=== PATIENT | male | born 1935 | race Caucasian/White ===

== ENCOUNTER → 2017-04-26 | Outpatient (CLI) | payer OTHER | END | disposition home or self-care (01) | LOC: C.RDSM 11:08 | PROVIDERS: ATTEND Physical Medicine & Rehabilitation Sports Medicine | DX: M25.561 Pain in right knee (principal) ==

== ENCOUNTER 2019-12-18 09:00 | Inpatient (IN) ==
--- NOTE | 2019-11-22 09:49 | PAT Medication Instructions ---
Medication Instructions Date of Service November 22, 2019 Home Medications aspirin 81 mg PO Q OTHER DAY losartan 50 mg PO QAM simvastatin 20 mg PO HS terazosin 5 mg PO HS Continue as directed aspirin 81 mg PO Q OTHER DAY DO NOT take the morning of surgery losartan 50 mg PO QAM Take evening before surgery simvastatin 20 mg PO HS terazosin 5 mg PO HS Other Notes If you have any questions please call us at [phone] or [phone] or [phone] or [phone]
--- NOTE | 2019-11-26 10:42 | Anesthesiology Consultation ---
Date of Service November 26, 2019 Assessment & Plan (1) Encounter for pre-operative examination: - Per assessment on 11/25: Travel screen negative. No known COVID-19 positive contacts or current COVID-19 related symptoms. Surgeon arranging preop COVID testing. Awaiting results. - Cardiology office visit: 06/28/19: Rare palpitations. "Patient reports blood pressure readings "improving." Reports did increase losartan to 50 mg daily. Advised to continue to monitor blood pressure readings. One episode of elevated heart rate but overall no changes; will continue current medical therapy." Chart Review Chart Review: Acceptable Risk for Surgery (pending surgeon-ordered PCP clearance) and Patient seen in Pre Admission Testing Teaching & Discussion Pre-Anesthesia Teaching/Discussion Notes: Instructed NPO after midnight before surgery,except medications with 15 cc of water. Medication instructions provided according to the PAT guidelines. History Surgery Operation Date: 12/18/19 10:10 Proposed Procedures p Right Total Knee Arthroplasty - Noman Iglesias MD Height/Weight Height: 5 ft 9 in Weight: 89.1 kg Allergies Allergy/AdvReac Type Severity Reaction Status Date / Time lisinopril AdvReac Mild Cough Verified 11/21/19 11:57 Medications Home Medications Medication Instructions Recorded Confirmed Last Taken aspirin 81 mg PO Q OTHER DAY 11/21/19 11/21/19 Unknown losartan 50 mg PO QAM 11/21/19 11/21/19 Unknown simvastatin 20 mg PO HS 11/21/19 11/21/19 Unknown terazosin 5 mg PO HS 11/21/19 11/21/19 Unknown Past Medical History Medical History (Updated 11/26/19 @ 15:13 by Jody Chambers) Arthritis BPH (benign prostatic hyperplasia) CAD (coronary artery disease) 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 Hyperlipidemia Hypertension Mitral valve prolapse mitral valve prolapse with moderate MR per 11/2018 echo Exercise / Class Metabolic Activity II 4-5 Yardwork/Stairs/Walk up hill Past Family History Family History Sister Family hx of colon cancer Past Surgical History Surgical History (Updated 11/26/19 @ 15:09 by Jody Chambers) History of cardiac cath 2015 History of cataract surgery Right History of colonoscopy History of open reduction and internal fixation (ORIF) procedure Right arm Past Anesthesia History No Hx of Anesthesia Complications and No Family Hx of Anesthesia Complications History of PONV No Hx of PONV and No Hx of Motion Sickness Social History Smoking Status: Former smoker Do You Dip or Chew Tobacco: No Smoking End Date: Quit 55 years ago Hx Alcohol Use: No Hx Substance Use: No substance use type: does not use Review of Systems Patient denies chest pain, shortness of breath, dyspnea on exertion, fever, chills, cough, wheezing, palpitations. Physical Exam Vital Signs VITALS BP 149/72 P 62 TEMP 98.0 SP02 95%RA RESP 16 PHYSICAL Full neck and c-spine range of motion. Full TMJ range of motion. TMD 3 finger breaths Mallampati Score 2 Dentition: full dentures upper/lower Lungs: clear throughout to auscultation Cardiac: regular rate and rhythm, II/ systolic murmur Spine: normal Carotid arteries: negative bruit Extremities: no edema Testing Laboratory Results 11/26/19 10:58 11/26/19 10:58 PT 11.1 Seconds (9.0-12.0) 11/26/19 10:58 INR 1.1 (0.9-1.1) 11/26/19 10:58 APTT 28.1 Seconds (21.0-31.0) 11/26/19 10:58 Blood Type A Positive 11/26/19 10:58 Antibody Screen NEGATIVE 11/26/19 10:58 Electrocardiogram Date: 11/26/19 SB at 58bpm. Peaked T waves. Otherwise normal ECG. *Potassium done at same visit was WNL, no cardiopulmonary complaints. Will forward report to PCP (she will be seeing PCP for preop evaluation prior to surgery* Chest X-Ray Date: 11/26/19 FINDINGS: Cardiomediastinal and hilar silhouettes are within normal limits. Subsegmental left lung base opacities. Mild pleural thickening of the apices. No pneumothorax, large pleural effusion or overt pulmonary edema. Degenerative changes of the shoulders and spine. Partially imaged ORIF hardware of the proximal right humerus. Age-indeterminate lower thoracic compression deformi ties. IMPRESSION: No acute process. Minimal linear left lung base opacities suggest atelectasis. Echocardiogram Date: 11/21/18 EF 60%. No regional wall motion abnormality. Mild mitral valve prolapse. Moderate MR. Mild TR. Estimated PASP 39 to 44 mmHg. Mild pulmonary hypertension. Grade 1 diastolic dysfunction. borderline LVH. Stress Test Date: 07/05/14 Type: nuclear Based on EKG criteria this test is negative exercise test for ischemia. Based on nuclear imaging findings there is inferior lateral ischemia. LVEF 53%. Subsequent cardiac cath done July 22, 2014 with nonobstructive CAD. Cardiac Catheterization Date: 07/22/14 Left main is a large artery. It is angiographically normal. LAD has 20% proximal stenosis. Further down around the takeoff of the second diagonal there is a section of 20 to 30% stenosis. The OM1 has 30 to 40% stenosis. The rest of this vessel has minimal luminal irregularities. Mild nonobstructive CAD. Medical therapy recommended.
[2019-11-26 11:21] LABS: Basophils # (auto) 0.03 K/uL (0-0.2); Basophils % (auto) 0.5 %; Eosinophils # (auto) 0.15 K/uL (0-0.5); Eosinophils % (auto) 2.6 %; Hematocrit (blood only) 39.9 % (42-52); Immature Granulocytes # (auto) 0.01 K/uL (0.00-0.02); Immature Granulocytes % (auto) 0.2 %; Lymphocytes # (auto) 0.96 K/uL (1.2-3.4); Lymphocytes % (auto) 16.5 %; Mean Corpuscular Hemoglobin 30.3 pg (25-34); Mean Corpuscular Hgb Conc 32.6 g/dL (32-36); Monocytes # (auto) 0.47 K/uL (0.11-0.59); Monocytes % (auto) 8.1 %; Neutrophils # (auto) 4.19 K/uL (1.4-6.5); Neutrophils % (auto) 72.1 %; Platelet Count 234 K/uL (130-400); RDW Coefficient of Variation 14.2 % (11.5-14.5); RDW Standard Deviation 47.9 fL (36.4-46.3); Red Blood Count 4.29 M/uL (4.7-6.1); White Blood Count 5.81 K/uL (4.8-10.8)
--- NOTE | 2019-11-26 11:30 | XRay Report ---
XR chest Pre-admission PA/Lat HISTORY: 83 years-old Male pat preoperative exam. No acute chest complaints COMPARISON: None TECHNIQUE: PA and lateral views of the chest FINDINGS: Cardiomediastinal and hilar silhouettes are within normal limits. Subsegmental left lung base opaciti es. Mild pleural thickening of the apices. No pneumothorax, large pleural effusion or overt pulmonary edema. Degenerative changes of the shoulders and spine. Partially imaged ORIF hardware of the proxim al right humerus. Age-indeterminate lower thoracic compression deformities. IMPRESSION: 1. No acute process. 2. Minimal linear left lung base opacities suggest atelectasis. ACT 112: Negative or not required by law. The above report was generated using voice recognition software. It may contain grammatical, syntax o r spelling errors. Electronically signed by: Surjit Almendarez M.D. 11/26/2019 11:29 AM
[2019-11-26 11:31] LABS: INR 1.1 (0.9-1.1); Partial Thromboplastin Time 28.1 Seconds (21.0-31.0); Prothrombin Time 11.1 Seconds (9.0-12.0)
[2019-11-26 12:19] LABS: BUN Creatinine Ratio 17.3 (10-20); Calcium 9.3 mg/dl (8.5-10.1); Creatinine Clr Calc Pharmacy 48.1 ml/min; Est GFR (African American) 57.7; Est GFR (Non-African American) 49.8
--- NOTE | 2019-11-26 13:02 | Electrocardiogram Report ---
Test Reason : Blood Pressure : / mmHG Vent. Rate : 058 BPM Atrial Rate : 058 BPM P-R Int : 168 ms QRS Dur : 086 ms QT Int : 428 ms P-R-T Axes : 058 045 046 degrees QTc Int : 420 ms Sinus bradycardia Peaked T waves(consider ischemia,hyperkalemia,etc.) Otherwise normal ECG No previous ECGs available Confirmed by Johnny Calixto ([id number]) on 11/26/2019 1:01:38 PM Referred By: Noman Iglesias Confirmed By:Johnny Calixto
[~2019-12-18 09:00] MED LIST: ACETAMINOPHEN 500 MG TAB PO SCH; BUPIVACAINE 0.25% 30 ML VIAL ONE; BUPIVACAINE 0.5 % 5 MG/1 ML PF 10ML VIAL ONE; CeleBREX 200 MG CAP PO SCH; DEXAMETHASONE SOD INJ 4 MG/ML VIAL ONE; EPINEPHrine INJ 1 MG/ML AMP ONE; FAMOTIDINE 20 MG TAB PO SCH; GABAPENTIN 300 MG CAP PO SCH; LR 500ML BOLUS, THEN 15ML/HR IV SCH; LR 60ML/HR IV SCH; ROPIVACAINE 0.5% HCL/PF 150 MG, BUPIVACAINE 0.5% MPF 30 ML, EPINEPHrine 0.15 MG, Ketoro... INFIL SCH; TRANEXAMIC ACID 1,000 MG **IV Intra-op IV SCH; TRANEXAMIC ACID 1,000 MG **IV Pre-op IV SCH; ceFAZolin 2000MG 2,000 MG/15 ML SYR IV SCH; cloNIDine HCL 0.1 MG/24 HR TRANSDERM SYS TD SCH; dexAMETHasone 4 MG TAB PO SCH; oxyCODONE HCL 10 MG TABCR (OxyCONTIN) PO SCH; traMADol HCL 50 MG TABLET PO SCH
[2019-12-18] MEDS ORDERED: PROPOFOL IV EMULSION 10 MG/ML 20 ML VIAL IV ONE ×3 (09:59→14:20)
[2019-12-18] MEDS ORDERED: fentaNYL citrate 100 MCG/2 ML VIAL ONE (09:59)
[2019-12-18] MEDS ORDERED: LIDOCAINE HCL 2% 2 ML VIAL/AMP(20MG/ML) INFIL ONE (09:59)
[2019-12-18] MEDS ORDERED: MIDAZOLAM HCL 1 MG/ML 2ML VIAL ONE (09:59)
--- NOTE | 2019-12-18 10:47 | History & Physical Bridge Note ---
Date of Service December 18, 2019 History & Physical Bridge Note I have examined the patient, reviewed the History & Physical and in the interval since the performance of the History & Physical I have noted the following changes of clinical significance: no changes noted
[2019-12-18] MEDS ORDERED: ePHEDrine sulfate 50 MG/ML AMP IV PRN (10:48)
[2019-12-18] MEDS ORDERED: ONDANSETRON INJ 2 MG/ML 2 ML VIAL IV PRN ×2 (10:48→17:11)
[2019-12-18] MEDS ORDERED: fentaNYL citrate 100 MCG/2 ML VIAL IV PRN (10:48)
[2019-12-18] MEDS ORDERED: ATROPINE SULFATE 0.1 MG/ML 10ML SYR IV PRN (10:48)
[2019-12-18] MEDS ORDERED: ORTHO JOINT ANESTHETIC ONE (11:03)
[2019-12-18] MEDS ORDERED: BACITRACIN INJ 50,000 UNIT VIAL ONE (11:03)
[2019-12-18] MEDS ORDERED: ePHEDrine sulfate 50 MG/ML SYR ONE (11:41)
--- NOTE | 2019-12-18 14:54 | Operative Report ---
Post Operative Report Pre & Post Diagnosis Operation Date: 12/18/19 11:20 Pre-Op Diagnosis: Right Knee Degenerative Joint Disease Post-Op Diagnosis: Right Knee Degenerative Joint Disease I identified the patient and participated in the time-out.: Yes Procedure Operation Date: 12/18/19 11:20 Actual Procedures p Right Total Knee Arthroplasty(Right) - Noman Iglesias MD Surgeon Noman Iglesias M.D. Machine Packer Jessica Estes, fellow; Millicent Moreira PA-C Estimated Blood Loss 10 Findings Consistent with Post-Op Diagnosis Specimens None Anesthesia Type Spinal MAC Complications none Description of Procedure Patient was taken to the operating room, placed under spinal anesthesia, given IV sedation and peripheral nerve block. He was given 2 gm IV Ancef for surgical prophylaxis. Time out performed, prepped and draped in routine sterile fashion. I was present during the entire case, please see Dr. Iglesias's operative report for further detail. Patient was awakened and transferred to the recovery room in stable condition. I attest to the content of the Intraoperative Record and any orders documented therein. Any exceptions are noted below.
--- NOTE | 2019-12-18 15:04 | Anesthesiology Progress Note ---
Date of Service December 18, 2019 Anesthesia Post Procedure Vital Signs Vital Signs: Temp Pulse Pulse Resp BP BP Pulse Ox 12/18/19 14:55 69 16 120/56 L 95 12/18/19 14:47 36.3 C L 79 16 140/60 95 12/18/19 10:22 36.7 C 61 18 135/71 95 12/18/19 09:57 36.5 C 85 18 153/81 H 96 Transfer of Care Handoff Completed per policy Notes Mental Status: alert / awake / arousable Patient Amnestic to Procedure: Yes Nausea / Vomiting: adequately controlled Pain: adequately controlled Airway Patency, RR, SpO2: stable & adequate BP & HR: stable & adequate Hydration State: stable & adequate Neuraxial Anesthesia: was administered and sensory block is resolving Anesthetic Complications: no major complications apparent and Pt Satisfied with anesthetic care
--- NOTE | 2019-12-18 15:11 | XRay Report ---
XR knee RT 1 or 2V routine CLINICAL HISTORY: Surgical Post Op COMPARISON: 11/19/2019 DISCUSSION: There are postsurgical changes of a total right knee arthroplasty and patellar resurfacin g. The femoral and tibial components appear well seated. There are overlying skin elias. There is g as present within the soft tissues consistent with recent surgery. IMPRESSION: Postsurgical changes of a total right knee arthroplasty. ACT 112: Negative or not required by law. Electronically signed by: Greg Carrera M.D. 12/18/2019 3:09 PM
[2019-12-18] MEDS ORDERED: HYDROmorphone INJ 0.5 MG/0.5 ML SYR IV PRN (17:11)
[2019-12-18] MEDS ORDERED: TAMSULOSIN HCL 0.4 MG CAP PO PRN (17:11)
[2019-12-18] MEDS ORDERED: NALOXONE HCL 0.4 MG/1 ML VIAL/CARP IV PRN (17:11)
[2019-12-18] MEDS ORDERED: hydrALAZINE HCL 20 MG/ML VIAL IV PRN (17:11)
[2019-12-18] MEDS ORDERED: traMADol HCL 50 MG TABLET PO PRN (17:11)
[2019-12-18] MEDS ORDERED: bisacodyL 10 MG SUPP PR PRN (17:11)
[2019-12-18] MEDS ORDERED: oxyCODONE HCL IR 5 MG TAB (IMMEDIATE RELEASE) PO PRN (17:11)
[2019-12-18] MEDS ORDERED: METOCLOPRAMIDE HCL INJ 5 MG/ML 2 ML VIAL IV PRN (17:11)
[2019-12-18] MEDS ORDERED: MAGNESIUM HYDROXIDE SUSP 30 ML UDC PO PRN (17:11)
--- NOTE | 2019-12-18 17:32 | Post Operative Brief Note ---
Immediate Post Op Note v1 Date of Surgery December 18, 2019 Pre & Post Diagnosis Operation Date: 12/18/19 11:20 Pre-Op Diagnosis: Right Knee Degenerative Joint Disease Post-Op Diagnosis: Right Knee Degenerative Joint Disease I identified the patient and participated in the time-out.: Yes Procedure Operation Date: 12/18/19 11:20 Actual Procedures p Right Total Knee Arthroplasty(Right) - Noman Iglesias MD Surgeon Noman Iglesias MD Pull Out Operator Jessica Estes, fellow; Millicent Moreira PA-C Estimated Blood Loss 10 Findings Consistent with Post-Op Diagnosis Anesthesia Type Spinal MAC Complications none Disposition Accompanied Patient To Recovery: No Disposition: Recovery Room
[2019-12-18] MEDS: CHECK CLONIDINE PATCH PLACEMENT SCH ×4 (17:34→23:32)
--- NOTE | 2019-12-18 18:01 | Progress Notes ---
DATE: 12/18/2019 The patient is resting comfortably in bed without significant complaint. He is afebrile. His vital signs are stable. Dorsalis pedis 1+. Sensation normal. Ankle and toe plantarflexion, dorsiflexion and foot eversion intact, normal strength. Dressing clean and dry. X-rays of the right knee were reviewed. Anatomic alignment with good positioning and no evidence of complication. IMPRESSION: Right knee replacement. PLAN: Doing very well. Discussed the results of his operation. Advised use of the brace when he is up and about. Do not ambulate independently. He inquired about driving and it is probably going to be at least 4-6 weeks until he is able to do that. We will continue with our routine postoperative care for his total knee replacement. Lovenox starting no sooner than 12 hours after surgery. We will follow up with him tomorrow.
[2019-12-18] MEDS: KETOROLAC TROMETHAMINE 15 MG/ML VIAL IV SCH ×2 (18:17→23:31)
[2019-12-18] MEDS ORDERED: ASPIRIN 81 MG ECTAB PO SCH (19:00)
--- NOTE | 2019-12-18 19:00 | Operative Report (OR) ---
DATE OF OPERATION: 12/18/2019 PREOPERATIVE DIAGNOSIS: Right knee osteoarthritis. POSTOPERATIVE DIAGNOSIS: Right knee osteoarthritis. PROCEDURE: Cemented right total knee arthroplasty. SURGEON: Dr. Iglesias. ASSISTANTS: Jessica Estes (fellow) and Millicent Moreira, physician's apartment community assistant manager. ANESTHESIA: Spinal, peripheral nerve block and sedation. BRIEF HISTORY: Stephane is 83. He has severe right knee arthritis, which is causing him symptoms which are not controlled with nonsurgical treatment. He has been evaluated preoperatively by medicine and is here for surgery. PROCEDURE IN DETAIL: Informed consent was obtained. The patient was identified as Stephane Carr. He identified the operative site as the right knee. I marked it with my initials. A preoperative surgical timeout was performed. A preop dose of IV antibiotics were given. He was taken to the operating room, positioned supine on the operating room table and the anesthetic was administered. A tourniquet was applied to the right thigh and a padded post was used under the calf for positioning of the leg. The leg was then prepped and draped in the usual sterile fashion. He had about a 7-degree flexion contracture and range of motion to about 120 degrees flexion. There is a fixed marked varus deformity with a slight LCL laxity. There was a small effusion within the knee. DVT prophylaxis with foot pumps intraoperatively and postoperatively, mechanical devices, early mobility and Lovenox. TXA given. The limb was exsanguinated with the Esmarch. Tourniquet inflated to 250 mmHg. A midline longitudinal incision was made followed by medial parapatellar arthrotomy. Soft tissue on the anterior aspect of the distal femur was resected and the synovial reflection in the lateral gutter was removed. There was some scarring in the retropatellar fat pad and this was thoroughly debrided. The tibial tubercle was identified. An extensile medial release was performed over the proximal medial tibia extending around to the semimembranosus tendon area. The patella was able to be easily everted, and the knee flexed to 90 degrees. There were severe osteophytes in the knee. There were grade 4 chondrosis in the medial compartment with large osteophytes and eburnation and bony erosion. The medial meniscus was deficient. The cruciate ligaments appeared to be intact. The lateral compartment looked relatively normal with some osteophytes. There were grade 2 and 3 changes of arthritis in the patellofemoral joint and patella. Marginal osteophytes were removed throughout the knee. Hohmann retractors were inserted. The cruciate ligaments were resected and the knee was subluxated. A pilot plant research technician hole was drilled just in front of and between the tibial spines. The intramedullary alignment rajinder was inserted. This was set to resect 10 mm off of the high side corresponding to a skim cut medially. I actually lowered this an additional 2 mm given the degree of his deformity. The 0-degree cutting block was applied. The knee was placed in full extension and the alignment rajinder confirmed parallel slope to the tibia bisecting the ankle joint intersecting the second ray. This cut was carefully made and recut as necessary. Marginal osteophytes further were defined and removed. The lateral cortical margin was defined. There was a small area posteromedially 1 mm or 2 in depth where there was uncontained bony erosion defect. The tibia was sized to a 5; however, I elected to downsize to a 4, which would help us with releasing. Attention was turned to the femur where a pilot plant research technician hole was drilled followed by insertion of the distal femoral cutting guide set at 7 degrees right knee valgus 14 mm thick cut. This was based upon his flexion contracture. The collateral ligaments were identified and protected. They were proximal to the cut. This cut was made. The transepicondylar axis was marked out and the distal femoral sizing block was applied. This was sized to a 5 and the external rotation holes were drilled matching the epicondylar axis. The extension gap was 10, but it was lax lateral and tight medial. Then went ahead and protected the collateral ligaments and using the box cutting guide, made the anterior and posterior cuts plus the chamfers. I went ahead and resected the posterior osteophytes. The flexion gap was slightly tight, 10 medially and slightly lax laterally. At this time, I went ahead and did more medial releasing, medial distal and medial posterior. Also released off the back of the distal femur. This improved the laxity pattern. I was able to insert a 12.5 mm spacer with a near symmetric laxity at 0 and 90 degrees. The box cutting guide was applied, lateralized, pinned in place and the box cut was made. The femoral component was applied. The tibial component was drilled and punched for the keel and the 12.5 mm spacer was inserted. I then marked the medial uncapped bone and went ahead and resected about 2-3 mm of the medial and posteromedial bone, effectively lengthened the MCL. This was beveled with a rasp and this helped relax the medial tightness. Rotation was marked. The patella measured 27 mm in thickness. The guide was set to preserve 14 mm of bone. The cut was made and it indeed preserved 14 mm of bone. The 38 patella was selected. It was oriented with the knee slightly flexed distal and medial. The lug holes were drilled and patellar tracking with the button in place was fine with a hands-free technique. The trial components were removed from the knee and the canals were plugged. The back of the knee was injected with Ortho joint mix. Irrigation was performed and the surfaces were meticulously prepared. Drilling was performed. Eburnated areas posteromedial tibia and medial patella. Two bags of Simplex P cement were mixed and while in a doughy state, the components were cemented into place, femur, patella and tibia. The knee was held in full extension until the cement had hardened. The remainder of the Ortho joint mix was injected and the knee was irrigated. Some cement did leak out from the plastic on the femoral component. This required us to remove a liquid cement out of the box area. Fortunately, we were able to completely do this prior to the cement hardening. Composite patellar thickness was 27 mm. Patellar tracking was fine with the no hands technique. The tourniquet was let down after 130 minutes of inflation after the cement had hardened. The knee was stable in full extension, had 1+ LCL laxity in mid position and a trace bit of LCL laxity at 90 degrees. The back of the knee was inspected for cement. Bleeding was controlled with hemostasis and electrocautery. The final spacer was inserted. Extensor mechanism was closed above the equator of the patella with interrupted #2 FiberWire. Below the equator with running and interrupted #1 Vicryl. The subcutaneous tissues were closed with 0 and 2-0 Vicryl and elias on the skin. The leg was cleaned with wet and dry sponges and a soft sterile dressing was applied. Xeroform, 4 x 4's, ABD, full length Henry wrap and knee immobilizer. The patient was awakened from anesthesia without difficulty and taken to the recovery room in stable condition. There were no complications. Blood loss was 10 mL. An additional dose of TXA was given. The resected bone and soft tissue was sent for specimen. Counts were correct. At the conclusion of the operation, I spoke to the patient's son and informed him of my findings. Postoperative instructions were given. Components inserted were the [employer] rotating platform knee, a 38 mm 3-peg oval dome patella, a size 4 mobile bearing keeled tibial tray with a 12.5 mm thick size 5 rotating platform polyethylene insert, and a size 5 posterior stabilized right femur. I attest to the content of the Intraoperative Record and any orders documented therein. Any exception s are noted below.
[2019-12-18] MEDS: SODIUM CHLORIDE 0.9% 1000ML 1,000 ML IV SCH (19:31)
[2019-12-18] MEDS: ceFAZolin 2000MG 2,000 MG/15 ML SYR IV SCH (19:31)
[2019-12-18] MEDS ORDERED: SENNA 8.6 MG TAB PO SCH (21:00)
[2019-12-18] MEDS ORDERED: SIMVASTATIN 20 MG TAB PO SCH (21:00)
[2019-12-18] MEDS ORDERED: TERAZOSIN HCL 5 MG CAP PO SCH (21:00)
[2019-12-18] MEDS: DOCUSATE SODIUM 100 MG CAP PO SCH (21:39)
[2019-12-18] MEDS: ACETAMINOPHEN 500 MG TAB PO SCH (21:41)
[2019-12-19] MEDS: ceFAZolin 2000MG 2,000 MG/15 ML SYR IV SCH (03:22)
[2019-12-19] MEDS: SODIUM CHLORIDE 0.9% 1000ML 1,000 ML IV SCH (05:42)
[2019-12-19] MEDS: ACETAMINOPHEN 500 MG TAB PO SCH ×2 (05:44→13:04)
[2019-12-19] MEDS: KETOROLAC TROMETHAMINE 15 MG/ML VIAL IV SCH ×2 (05:44→11:17)
[2019-12-19 06:44] LABS: Hematocrit (blood only) 32.9 % (42-52); Hemoglobin 11.1 g/dL (14.0-18.0); Mean Corpuscular Hemoglobin 31.2 pg (25-34); Mean Corpuscular Hgb Conc 33.7 g/dL (32-36); Mean Corpuscular Volume 92.4 fL (80-100); Mean Platelet Volume 9.1 fL (7.4-10.4); Platelet Count 211 K/uL (130-400); RDW Coefficient of Variation 14.1 % (11.5-14.5); RDW Standard Deviation 47.8 fL (36.4-46.3); Red Blood Count 3.56 M/uL (4.7-6.1); White Blood Count 9.79 K/uL (4.8-10.8)
[2019-12-19 06:49] LABS: BUN Creatinine Ratio 20.6 (10-20); Creatinine Clr Calc Pharmacy 37.3 ml/min; Est GFR (African American) 42.9; Potassium 4.4 mmol/L (3.5-5.1)
[2019-12-19] MEDS ORDERED: ENOXAPARIN INJ 30 MG/0.3 ML SYR SQ SCH (07:00)
--- NOTE | 2019-12-19 07:43 | Discharge Summary ---
Date of Service December 19, 2019 Discharge Data Consultations 12/18/19 17:11 Consult Case Management - Discharge Planning Routine Procedures Performed Operation Date: 12/18/19 11:20 Actual Procedures p Right Total Knee Arthroplasty(Right) - Noman Iglesias MD Hospital Course (1) Degenerative joint disease of knee, right: Patient was admitted to [facility] on December 18, 2019 after undergoing and elective right total knee arthroplasty. His surgery was performed with spinal anesthesia, with IV sedation and peripheral nerve block. He was given IV Ancef prior to his surgery which was continued for 24 hours after his procedure. He tolerated the procedure well without any intra- operative complications. Postoperative x-rays were taken in the recovery room which showed a stable prosthesis in good position. He was given a regular diet post operatively and tolerated during his inpatient stay. He was given oxycodone, tramadol, tylenol, toradol, IV dilaudid for post operative pain control. His pain was well controlled during his stay. He was started on Lovenox 30 mg BID on the morning of his procedure for DVT prophylaxis. He was also given Ihsan stockings and SCD's during his inpatient stay. His vitals remained stable during his inpatient stay. He was allowed out of bed, weight bear as tolerated right lower extremity with the assistance of a walker and knee immobilizer when out of bed for 48 hours after surgery. He was given a bowel regimen as needed and had slightly low urine output and bowel movements during his inpatient stay. On post operative day #1 CBC and BMP were performed. He was found to have a slightly elevated BUN/CR and was given more IV lactated ringers prior to discharge. He was seen by physical therapy and occupational therapy and did well out of bed. He was seen by Case management for discharge needs and was set up for home health and home nursing. He was deemed safe for discharge and was discharged to his home in stable condition on December 19, 2019. Recommend he follow up with his family physician next week and follow up with Dr. Iglesias as scheduled. Discharge Instructions New Medicine: * You will likely be taking one or more of these medications: 1. Lovenox- You will be on Lovenox for 2-4 weeks after surgery to prevent blood clots. Do not take anti-inflammatory pills (Advil or Aleve) while on Lovenox. Aspirin, 81 mg is OK. 2. Oxycodone - Take, as directed, when you need it, every four to six hours to control your pain. 3. Tramadol - Take, as directed, when you need it, every four to six hours to control your pain. 4. Colace & Senokot - Take to prevent constipation which can be caused by n arcotics. These can be bought [id number] at the pharmacy 5. Tylenol - 1-2 tabs every 8 hours as needed for pain. * The most common side effects of pain medicine are nausea and constipation. If nausea or constipation is too much of a problem or if you have any questions about your new medicines or doses, call [facility] at . We will try to help you manage these issues. "VERY IMPORTANT TO READ AND REVIEW" Blood Clots and Blood Thinning Medicine: * You are given Lovenox during the immediate post-operative period to lessen the risk of blood clots forming in your legs and/or lungs. Lovenox is usually given for 2-4 weeks after surgery. * The prescription is for 30 mg injections. * You need to get blood work on Tuesday12/24/19. Physical Therapy: * Do your physical therapy at home. These are the exercises you learned while in the hospital (quad sets, leg raises, calf pumps, gluteal squeezes, knee bending, and heel props.) You should do these exercises 3-4 times per day. * You will either go to inpatient rehab ([facility]), home with Home Therapy and nursing or home with outpatient rehab. You should do rehab with the therapist 2-3 times per week. You should do therapy on your own daily. * You may bear full weight on your leg with crutches or walker unless otherwise advised. Home Exercise: * You were shown a series of exercises (heel props, heel slides, etc.) in the hospital. Do these exercises three to four times each day including the exercises you were shown in physical therapy. Walking: * You may be up for short periods of time. Standing and walking for 1-2 hours at a time is usually okay. You should not stand or walk for excessive periods of time as this may Cause increased pain and swelling. SELF CARE INSTRUCTIONS AFTER TOTAL KNEE REPLACEMENT A. You may need to continue a physical therapy program after discharge from the hospital. There are several options available to you. Your doctor will assist you in selecting the best one for you. 1. An out-patient facility 2 to 3 times a week for therapy or home therapy. 2. Continue working on all exercises taught to you in the hospital. Your goals should be to increase bending of your knee to 90 degrees and beyond and to fully straighten your knee. B. Your therapist will notify you when you are able to progress from a walker to a cane. C. Wear TEDS as much as possible.~ They may be removed at night for laundering. D. Do not place a pillow behind your knee when resting. A pillow at your ankle is okay. E. Ice your knee 15-20 minutes every 2-3 hours and elevate it above the level of your heart. F. You may shower on the fourth day after surgery using regular soap and water. Do not submerge until the wound is completely healed (approximately 2 weeks). Until the fourth day after surgery, cover the incision/bandage with a bag or plastic wrap. G. Anyone who is touching your surgical incision area should wash their hands and wear gloves. H. Keep your incision covered with gauze pads under the IHSAN hose until it is dry. VERY IMPORTANT TO READ AND REVIEW A. YOU WILL BE GIVEN AN ORDER AT DISCHARGE FOR CBC (BLOOD WORK). Script provided at discharge. PLEASE HAVE THIS DONE INSTRUCTED. PLEASE CALL OUR OFFICE AFTER YOUR BLOODWORK IS COMPLETE SO WE CAN TRACK YOUR RESULTS. IF YOU ARE GOING TO OUTPATIENT PHYSICAL THERAPY, YOU WILL NEED TO GO TO OUT PATIENT TESTING TO HAVE IT DRAWN. B. There are a few signs you need to watch for after you are home. Call [facility] if you notice any of the followin. Increased severe knee pain. Some pain is expected especially when you exercise. 2. Increased swelling in your leg or knee; pain or swelling of the calf muscle in either lower leg. 3. Any fluid drainage from the incision. 4. Shortness of breath or chest pain. 5. Numbness and tingling in the surgical extremity C. Please call [facility] at if you have any concerns or questions about your operation or recovery. The doctor or his nurse will return your call promptly. D. Do not have any elective dental work or other elective procedures done for 6 weeks after your knee replacement. When you have any invasive procedure (dental cleaning, extraction, colonoscopy etc) performed, you will need to take antibiotics to prevent infection from developing in your artificial joint. Tell your other health care providers you have an artificial joint. My office will supply you with further information and the antibiotics. Call your doctor if: * Temperature above 101 degrees F. * Pain not relieved by pain medicine ordered. * Increased drainage or redness from incision. * Notify your doctor with any questions or concerns. Follow-up Visit: You will follow-up with Dr. Iglesias 10-14 days after surgery. The office number is . Avoid all tobacco products. If you need help to stop smoking, call [place] at . This is a free call.
[2019-12-19] MEDS: CHECK CLONIDINE PATCH PLACEMENT SCH (08:00)
[2019-12-19] MEDS ORDERED: dexAMETHasone 4 MG TAB PO SCH (08:00)
[2019-12-19] MEDS: DOCUSATE SODIUM 100 MG CAP PO SCH (08:01)
[2019-12-19] MEDS ORDERED: LOSARTAN POTASSIUM 50 MG TAB PO SCH (09:00)
[2019-12-19] MEDS ORDERED: MULTIVITAMIN TAB PO SCH (09:00)
[2019-12-19] MEDS ORDERED: LACTATED RINGER'S 1,000 ML IV SCH (09:15)
--- NOTE | 2019-12-19 09:52 | Progress Notes ---
DATE: 12/19/2019 The patient is sitting in his chair, eating breakfast. Pain is well managed. He has no significant issues. On exam, his dressing is clean and dry. He is able to do a controlled straight leg raise. Dorsalis pedis is 1+. His motor strength of ankle and toe plantarflexion and dorsiflexion and foot eversion is 5/5. His sensation is normal. Labs are noted. BUN and creatinine are up a little bit. We will go ahead and give him gentle rehydration. White count normal, hematocrit 33, platelets 211. Urine output is a little low. He is doing well. We will see how he does with PT today and how his pain is. If goals are met, then we will consider discharge home today with home health services. He will follow up in 2 weeks. Discussed activity level. Lots of elevation, icing and rest. He will be on pain medication and will also take Lovenox. Check CBC. If there are any problems with swelling, drainage, pain, etc., he will call the office.
[2019-12-19] MEDS ORDERED: CeleBREX 200 MG CAP PO SCH (21:00)
== END 2019-12-19 16:30 | disposition home health service (06) | DRG 470 ==
LOC: 3E 09:00 → ASU 09:00 → OBSVTOIN 14:49

== ENCOUNTER 2020-01-02 17:42 | Inpatient (IN) ==
--- NOTE | 2020-01-02 18:34 | Emergency Department Note ---
Impression & Plan DVT (deep venous thrombosis) ED Provider Note NAME: KEVIN ENRIQUE AGE: 84 SEX: M : 1935 ARRIVES VIA: Walk-In INFORMANT: Patient, ED PROVIDER(S): Len Read MD Chief Complaint: Follow-up for DVT HPI: Patient does present after having an ultrasound completed earlier today which did show a DVT. The patient did have a recent right total knee completed by Dr. Iglesias 2 weeks prior. The patient subsequently did have dark tarry stools and was noted to have a bleeding gastric ulcer at which point [facility] and subsequent repair of his gastric ulcer. Patient subsequently did have a repeat blood draw which showed lower blood counts patient did receive additional transfusions including another 2 units. Patient was discharged on Tuesday. Patient denies any fevers chills chest pains or shortness of breath. The patient denies any fatigue. Patient was seen in the outpatient setting today and did have an outpatient ultrasound that was ordered which did show his DVT. ROS: See HPI for pertinent positives and negatives. A total of 10 systems were reviewed and otherwise negative. Past medical history: See below Surgical history: See below Social history: See below Physical Exam: GENERAL: Well appearing, well nourished, NAD, non-toxic. EYE EXAM: Normal conjunctiva. PERRL, no anisocoria and EOM's grossly intact w/o pain. NECK: Supple, no nuchal rigidity, no adenopathy, non-tender. No signs of meningismus. LUNGS: Clear to auscultation. Normal chest wall mechanics. HEART: NSR, no MRG. ABDOMEN: Abdomen soft, non-tender, normo-active bowel sounds, no masses, no rebound or guarding. BACK: No CVA TTP. SKIN: No rashes and no bruising. UPPER EXTREMITIES: Upper extremities are grossly normal. LOWER EXTREMITIES: Midline incision site over the right knee well-healing, mild swelling and ecchymosis over the right lateral aspect, compartments are soft neurovascular tact distally. NEURO EXAM: A&O x3, cranial nerves II-XII grossly intact, normal speech, moves all 4 extremities on command w/o issue. Differential diagnoses: DVT, musculoskeletal, infection, joint effusion, trauma, lymphedema, idiopathic, CHF, as well as other pathologies. Course: Patient was seen and evaluated the bedside. Full history physical exam was performed. EKG: Indication: Tachycardia Normal sinus rhythm, rate 72, normal intervals, normal axis, no ST changes or T WI. Imaging Studies: Radiology results as stated below per my review in the radiologist's interpretation: US venous doppler LE RT CLINICAL HISTORY: Right leg pain and swelling. COMPARISON STUDY: No previous studies for comparison. FINDINGS: Grayscale color flow and spectral Doppler waveform analysis was performed. No thrombus was visualized within the common femoral vein. There is an area of nonocclusive thrombus within the proximal superficial femoral vein. One of 2 paired posterior tibial arteries demonstrates thrombus. One of 2 paired peroneal veins demonstrates thrombus. One of 2 paired anterior tibial veins demonstrates broken flow. IMPRESSION: 1. Right lower extremity DVT with nonocclusive thrombus identified within the proximal superficial femoral vein, as well as calf DVT involving the posterior tibial and peroneal veins. ACT 112: Negative or not required by law. Electronically signed by: Greg Carrera M.D. 01/02/2020 5:22 PM Dictated: 01/02/201719Transcribed: 01/02/201719 XR chest 1V portable CLINICAL HISTORY: weakness COMPARISON STUDY: 11/26/2019 FINDINGS: The heart is mildly enlarged. There are subtle bilateral nodular parenchymal opacities. This could be secondary to a underlying inflammatory process although neoplasm cannot be excluded with certainty. Clinical and radiographic follow-up is recommended. There is no lobar consolidation. There is minor blunting of the left lateral costophrenic angle[ IMPRESSION: 1. Very subtle bilateral nodular parenchymal opacities, likely inflammatory. Clinical and radiographic follow-up is recommended. If these persist on follow- up radiographs, CT scanning could also be obtained in follow-up to exclude other pathology. ACT 112: Negative or not required by law. Electronically signed by: Greg Carrrea M.D. 01/02/2020 7:01 PM Dictated: 01/02/201858 Transcribed: 01/02/201858 Cardiac monitoring: An order was placed for continuous cardiac monitoring. The monitor shows a rate of 112 with sinus rhythm. MDM: Patient does present with concern for DVT on ultrasound. Blood work is ordered. I did speak the on-call vascular surgeon Dr. Haines but he is unavailable until Tuesday to place an IVC filter. I did contact general surgery Dr. Johnson who is also not trained in placing an IVC filter. I subsequently did call Dr. Gee with hematology for further guidance. Dr. Gee recommended that if tolerable the patient should be started on anticoagulant therapy which would be the Lovenox twice daily dosing at 1 becky per cake. Patient should also be on Protonix therapy. I did try and [facility] 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 Barrett. Patient's hemoglobin today is 8.3 and the patient reports to me that his hemoglobin is 8.2 at [place]. Patient does have some CKD stage III with mild hypocalcemia. Patient again is relatively asymptomatic at the bedside. I did speak with a Dr. Sade MD who is a soaker [facility]. He did review the patient's chart history. The patient did have a gastric ulcer which was ablated and cauterized. Patient hemoglobin at discharge was 8.2 on December 30. He stated that given that the vessel was ablated and cauterized this area would be unlikely to bleed. He thought it would be reasonable to restart the patient's anticoagulant therapy. He stated though that given the patient's recent bleed and restarting anticoagulant therapy thought the patient would benefit from an observation to ensure that the patient did well. Patient was ordered a dose of Lovenox. I did speak with the on-call hospitalist Dr. Ganesh MD. Patient was admitted to the medicine service. Critical Care: I have personally spent 95 minutes of critical care time in direct management of this patient. This includes bedside care, interpretation of diagnostic studies, and testing, discussion with consultants, patient, and family members, and other require inpatient management activities. This 95 minutes is in excess of all separately billable procedures. Past Med/Surg History Medical History Arthritis BPH (benign prostatic hyperplasia) CAD (coronary artery disease) Mild nonobstructive CAD per 2015 cardiac cath Hyperlipidemia Hypertension Mitral valve prolapse mitral valve prolapse with moderate MR per 11/2018 echo Surgical History History of cardiac cath 2015 History of cataract surgery Right History of colonoscopy History of open reduction and internal fixation (ORIF) procedure Right arm Family History Sister Family hx of colon cancer Social History Smoking Status: Never smoker Second Hand Exposure: No; Hx Alcohol Use: No Hx Substance Use: No Preferred Language: Sinhala Communication Ability: Effective [employer] 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 Required: No Beliefs That Will Affect Care: None marital status: Current Living Situation: Spouse Feels Safe at Home: Yes Assistive Devices: Walker Allergies Allergies Allergy/AdvReac Type Severity Reaction Status Date / Time lisinopril AdvReac Mild Cough Verified 12/18/19 09:34 Home Meds Home Medications Medication Instructions Recorded Confirmed losartan 50 mg PO QAM 11/21/19 01/02/20 simvastatin 20 mg PO HS 11/21/19 01/02/20 terazosin 5 mg PO HS 11/21/19 01/02/20 aspirin 81 mg PO Q2D 01/02/20 01/02/20 docusate sodium 100 mg PO BID PRN 01/02/20 01/02/20 pantoprazole 40 mg PO BID 01/02/20 01/02/20 Previous Rx's Medication Instructions Recorded acetaminophen 1,000 mg PO Q8 #30 tab 12/19/19 multivitamin [Daily-Sebastian] 1 tab PO QAM #30 tab 12/19/19 Results & Data (ED) Vital Signs Vital Signs - 24 hr 01/02/20 17:44 01/02/20 20:55 01/02/20 21:51 Temperature 36.9 C Temperature Source Oral Pulse Rate 118 H Pulse Rate [Right Finger] 75 77 Respiratory Rate 18 18 18 Respiratory Effort / Characteristics Non-Labored Spontaneous Non-Labored Spontaneous Non-Labored Spontaneous Respiratory Depth Normal Normal Normal Respiratory Pattern Regular Regular Regular Blood Pressure 117/67 Blood Pressure [Right Arm] 143/85 H 132/79 Blood Pressure Mean 83 Blood Pressure Mean [Right Arm] 104 96 Blood Pressure Position Sitting Blood Pressure Position [Right Arm] Lying Lying Pulse Oximetry 100 95 96 Oxygen Delivery Method Room Air Room Air Room Air Sepsis Recent Fever Within 48 Hours No Sepsis New/Unexplained Change in Mental Status N/A Sepsis Action Taken by Nursing No Action Required 01/02/20 22:49 Temperature Temperature Source Pulse Rate Pulse Rate [Right Finger] 74 Respiratory Rate 18 Respiratory Effort / Characteristics Non-Labored Spontaneous Respiratory Depth Normal Respiratory Pattern Regular Blood Pressure Blood Pressure [Right Arm] 127/65 Blood Pressure Mean Blood Pressure Mean [Right Arm] 85 Blood Pressure Position Blood Pressure Position [Right Arm] Lying Pulse Oximetry 95 Oxygen Delivery Method Room Air Sepsis Recent Fever Within 48 Hours Sepsis New/Unexplained Change in Mental Status Sepsis Action Taken by Jail Medications Current Medication List: was personally reviewed by me Laboratory Data Attestation: I reviewed the patient's lab results. Result diagrams: 01/02/20 19:17 01/02/20 19:17 Lab Results 01/02/20 01/02/20 01/02/20 Range/Units 19:17 19:17 19:17 WBC 7.04 (4.8-10.8) K/uL RBC 2.83 L (4.7-6.1) M/uL Hgb 8.3 L (14.0-18.0) g/dL Hct 25.9 L (42-52) % MCV 91.5 (80-100) fL MCH 29.3 (25-34) pg MCHC 32.0 (32-36) g/dL RDW Std Deviation 56.8 H (36.4-46.3) fL RDW Coeff of Mercy 17.1 H (11.5-14.5) % Plt Count 355 (130-400) K/uL MPV 8.4 (7.4-10.4) fL Immature Gran % (Auto) 0.3 % Neut % (Auto) 78.4 % Lymph % (Auto) 12.9 % [place] % (Auto) 5.1 % Eos % (Auto) 3.0 % Baso % (Auto) 0.3 % Neut # (Auto) 5.52 (1.4-6.5) K/uL Lymph # (Auto) 0.91 L (1.2-3.4) K/uL [place] # (Auto) 0.36 (0.11-0.59) K/uL Eos # (Auto) 0.21 (0-0.5) K/uL Baso # (Auto) 0.02 (0-0.2) K/uL Immature Gran # (Auto) 0.02 (0.00-0.02) K/uL PT 11.7 (9.0-12.0) Seconds INR 1.1 (0.9-1.1) Sodium 136 (136-145) mmol/L Potassium 4.3 (3.5-5.1) mmol/L Chloride 107 (98-107) mmol/L Carbon Dioxide 26 (21-32) mmol/L Anion Gap 3.0 (3-11) BUN 33 H (7-18) mg/dl Creatinine 1.73 H (0.6-1.4) mg/dl Est Cr Clr Drug Dosing 36.3 ml/min Est GFR ( Amer) 41.7 Est GFR (Non-Af Amer) 36.0 BUN/Creatinine Ratio 19.0 (10-20) Glucose 94 (70-99) mg/dl Calcium 7.6 L (8.5-10.1) mg/dl Magnesium 2.1 (1.8-2.4) mg/dl Total Bilirubin 0.5 (0.2-1) mg/dl AST 15 (15-37) U/L ALT 29 (12-78) U/L Alkaline Phosphatase 52 (45-117) U/L Troponin I < 0.015 (0-0.045) ng/ml Total Protein 5.9 L (6.4-8.2) gm/dl Albumin 2.9 L (3.4-5.0) gm/dl Globulin 3.0 (2.5-4.0) gm/dl Albumin/Globulin Ratio 1.0 (0.9-2) TSH 1.620 (0.300-4.500) uIu/ml SARS-CoV-2 Ag (Rapid) (Negative) 01/02/20 Range/Units Unknown WBC (4.8-10.8) K/uL RBC (4.7-6.1) M/uL Hgb (14.0-18.0) g/dL Hct (42-52) % MCV (80-100) fL MCH (25-34) pg MCHC (32-36) g/dL RDW Std Deviation (36.4-46.3) fL RDW Coeff of Mercy (11.5-14.5) % Plt Count (130-400) K/uL MPV (7.4-10.4) fL Immature Gran % (Auto) % Neut % (Auto) % Lymph % (Auto) % [place] % (Auto) % Eos % (Auto) % Baso % (Auto) % Neut # (Auto) (1.4-6.5) K/uL Lymph # (Auto) (1.2-3.4) K/uL [place] # (Auto) (0.11-0.59) K/uL Eos # (Auto) (0-0.5) K/uL Baso # (Auto) (0-0.2) K/uL Immature Gran # (Auto) (0.00-0.02) K/uL PT (9.0-12.0) Seconds INR (0.9-1.1) Sodium (136-145) mmol/L Potassium (3.5-5.1) mmol/L Chloride (98-107) mmol/L Carbon Dioxide (21-32) mmol/L Anion Gap (3-11) BUN (7-18) mg/dl Creatinine (0.6-1.4) mg/dl Est Cr Clr Drug Dosing ml/min Est GFR ( Amer) Est GFR (Non-Af Amer) BUN/Creatinine Ratio (10-20) Glucose (70-99) mg/dl Calcium (8.5-10.1) mg/dl Magnesium (1.8-2.4) mg/dl Total Bilirubin (0.2-1) mg/dl AST (15-37) U/L ALT (12-78) U/L Alkaline Phosphatase (45-117) U/L Troponin I (0-0.045) ng/ml Total Protein (6.4-8.2) gm/dl Albumin (3.4-5.0) gm/dl Globulin (2.5-4.0) gm/dl Albumin/Globulin Ratio (0.9-2) TSH (0.300-4.500) uIu/ml SARS-CoV-2 Ag (Rapid) Negative (Negative) Administered Medications Enoxaparin Sodium (Enoxaparin 100 Mg/1ml Syr) 90 mg SQ Q12H SHYANNE Stop: 02/01/20 21:59 Last Admin: 01/02/20 21:42 Dose: 90 mg Documented by: [id number] Pantoprazole Sodium 40 mg/ (Syringe) 10 mls @ 5 mls/min IV BID SHYANNE Stop: 02/01/20 20:59 Last Admin: 01/02/20 21:41 Dose: 5 mls/min Documented by: [id number] Discontinued Medications Enoxaparin Sodium (Enoxaparin 1 Mg/Kg) 1 mg SQ Q12H STA Stop: 01/02/20 21:01 Last Admin: 01/02/20 21:49 Dose: 1 mg Documented by: [id number] Discharge Plan Visit Data Chief Complaint: Fall Stated Complaint: fall, covid ED Provider: Len Read Discharge Problem: DVT (deep venous thrombosis) Forms Stand Alone Forms: [facility] Prescriptions Prescriptions: No Action losartan 50 mg Tablet 50 mg PO QAM RF: 0 terazosin 5 mg Capsule 5 mg PO HS RF: 0 simvastatin 20 mg Tablet 20 mg PO HS RF: 0 acetaminophen 500 mg Tablet 1,000 mg PO Q8 Qty: 30 RF: 0 multivitamin [Daily-Sebastian] Tablet 1 tab PO QAM Qty: 30 RF: 0 pantoprazole 40 mg tablet,delayed release (DR/EC) 40 mg PO BID RF: 0 docusate sodium 100 mg capsule 100 mg PO BID PRN (Reason: Constipation) RF: 0 aspirin 81 mg Tablet,Delayed Release (Dr/Ec) 81 mg PO Q2D RF: 0 Discharge Problem: DVT (deep venous thrombosis) Qualifiers: DVT location: lower extremity Affected thrombotic vein of extremity: femoral Chronicity: acute Laterality: right Qualified Code(s): I82.411 - Acute embolism and thrombosis of right femoral vein
--- NOTE | 2020-01-02 19:02 | XRay Report ---
XR chest 1V portable CLINICAL HISTORY: weakness COMPARISON STUDY: 11/26/2019 FINDINGS: The heart is mildly enlarged. There are subtle bilateral nodular parenchymal opacities. Thi s could be secondary to a underlying inflammatory process although neoplasm cannot be excluded with c ertainty. Clinical and radiographic follow-up is recommended. There is no lobar consolidation. There is minor blunting of the left lateral costophrenic angle[ IMPRESSION: 1. Very subtle bilateral nodular parenchymal opacities, likely inflammatory. Clinical and radiographi c follow-up is recommended. If these persist on follow-up radiographs, CT scanning could also be obta ined in follow-up to exclude other pathology. ACT 112: Negative or not required by law. Electronically signed by: Greg Carrera M.D. 01/02/2020 7:01 PM
[2020-01-02 19:28] LABS: Basophils # (auto) 0.02 K/uL (0-0.2); Basophils % (auto) 0.3 %; Eosinophils # (auto) 0.21 K/uL (0-0.5); Hematocrit (blood only) 25.9 % (42-52); Hemoglobin 8.3 g/dL (14.0-18.0); Immature Granulocytes # (auto) 0.02 K/uL (0.00-0.02); Immature Granulocytes % (auto) 0.3 %; Lymphocytes # (auto) 0.91 K/uL (1.2-3.4); Lymphocytes % (auto) 12.9 %; Mean Corpuscular Hemoglobin 29.3 pg (25-34); Mean Corpuscular Volume 91.5 fL (80-100); Mean Platelet Volume 8.4 fL (7.4-10.4); Monocytes # (auto) 0.36 K/uL (0.11-0.59); Monocytes % (auto) 5.1 %; Neutrophils # (auto) 5.52 K/uL (1.4-6.5); Neutrophils % (auto) 78.4 %; Platelet Count 355 K/uL (130-400); RDW Coefficient of Variation 17.1 % (11.5-14.5); RDW Standard Deviation 56.8 fL (36.4-46.3); Red Blood Count 2.83 M/uL (4.7-6.1); White Blood Count 7.04 K/uL (4.8-10.8)
[2020-01-02 19:39] LABS: INR 1.1 (0.9-1.1); Prothrombin Time 11.7 Seconds (9.0-12.0)
[2020-01-02 19:44] LABS: Alanine Aminotransferase 29 U/L (12-78); Albumin Level 2.9 gm/dl (3.4-5.0); Aspartate Aminotransferase 15 U/L (15-37); Blood Urea Nitrogen 33 mg/dl (7-18); Calcium 7.6 mg/dl (8.5-10.1); Carbon Dioxide 26 mmol/L (21-32); Chloride 107 mmol/L (98-107); Creatinine Clr Calc Pharmacy 36.3 ml/min; Est GFR (African American) 41.7; Glucose 94 mg/dl (70-99); Magnesium 2.1 mg/dl (1.8-2.4); Potassium 4.3 mmol/L (3.5-5.1); Sodium 136 mmol/L (136-145)
[2020-01-02 19:56] LABS: Alkaline Phosphatase 52 U/L (45-117); Bilirubin,Total 0.5 mg/dl (0.2-1); Total Protein 5.9 gm/dl (6.4-8.2); Troponin I < 0.015 ng/ml (0-0.045)
[2020-01-02] MEDS ORDERED: ENOXAPARIN 1 MG/KG SQ STA (21:00)
[2020-01-02] MEDS: PANTOprazole 40 MG in SYRINGE 0 ML IV SCH (21:41)
[2020-01-02] MEDS ORDERED: ENOXAPARIN 100 MG/1ML SYR SQ SCH (22:00)
--- NOTE | 2020-01-02 23:40 | History & Physical Report ---
Date of Service January 02, 2020 Assessment & Plan (1) Acute deep vein thrombosis (DVT) of right lower extremity after procedure: Acute DVT of right lower extremity/nonocclusive thrombus of proximal superficial femoral vein/calf DVT of posterior tibial and peroneal veins- Concern about anticoagulation with recent gastric ulcer requiring 4 units PRBCs transfusion. Discussion regarding placement of IVC filter, however, vascular surgeon unavailable for several days. We will admit for now with limited ambulation, and discuss other alternatives in the a.m. Present on Admission?: Yes (2) Gastric ulcer with hemorrhage: Obtain records from [facility]. Continue pantoprazole 40 mg p.o. twice daily Consult gastroenterology Present on Admission?: Yes (3) BPH (benign prostatic hyperplasia): Continue Terazosin 5 mg p.o. at bedtime Present on Admission?: Yes (4) CAD (coronary artery disease): CAD/hypertension hold losartan and aspirin for now. Present on Admission?: Yes (5) Hypertension: See above Present on Admission?: Yes (6) Hyperlipidemia: Continue simvastatin 20 mg at bedtime Present on Admission?: Yes History of Present Illness Chief Complaint: The patient presented to the emergency department evening, after venous Doppler of right lower extremity ordered by Dr. Iglesias was positive for DVT. Primary Care Provider: Eliud Newsome The patient is an 84-year-old male with a past medical history including hypertension, GERD, hyperlipidemia, BPH with LUTS, and status post right total knee arthroplasty by Dr. Iglesias on 12/18/2019. The patient reports that shortly after surgery, he had episodes of vomiting blood. He was sent to [facility], where he was found to have a bleeding gastric ulcer that was treated by gastroenterology there, and he received 2 units PRBCs there as well. After discharge from [place], he had follow-up laboratories that again revealed anemia, and received 2 units PRBCs at [facility] in [place]. From [facility] he was transferred to [facility] in [place] due to no bed availability at [place],, and was from there discharged on 12/30. He had routine follow-up with Dr. Iglesias earlier in the day today, where Dr. Iglesias ordered the right lower extremity venous Doppler, which was positive for a nonocclusive thrombus in the proximal superficial femoral vein, and a calf DVT in the posterior tibial and peroneal veins. The patient does have a chest x-ray which shows question of bilateral nodular opacities, and has no chest pain or shortness of breath symptoms, but we are unable to do a CT angiography PE protocol due to borderline GFR of 36. Allergies Allergy/AdvReac Type Severity Reaction Status Date / Time lisinopril AdvReac Mild Cough Verified 12/18/19 09:34 Home Medications Medication Instructions Recorded Confirmed Type losartan 50 mg PO QAM 11/21/19 01/02/20 History simvastatin 20 mg PO HS 11/21/19 01/02/20 History terazosin 5 mg PO HS 11/21/19 01/02/20 History acetaminophen 1,000 mg PO Q8 #30 tab 12/19/19 01/02/20 Rx multivitamin [Daily-Sebastian] 1 tab PO QAM #30 tab 12/19/19 01/02/20 Rx aspirin 81 mg PO Q2D 01/02/20 01/02/20 History docusate sodium 100 mg PO BID PRN 01/02/20 01/02/20 History pantoprazole 40 mg PO BID 01/02/20 01/02/20 History Past Med/Surg History Medical History Arthritis BPH (benign prostatic hyperplasia) CAD (coronary artery disease) 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 Hyperlipidemia Hypertension Mitral valve prolapse mitral valve prolapse with moderate MR per 11/2018 echo Surgical History History of cardiac cath 2015 History of cataract surgery Right History of colonoscopy History of open reduction and internal fixation (ORIF) procedure Right arm Family History Sister Family hx of colon cancer Social History Smoking Status: Former smoker Smoking End Date: 55 years ago; Second Hand Exposure: No; Do You Dip or Chew Tobacco: No; Tobacco Cessation Education Requested by Patient: No Hx Alcohol Use: No Hx Substance Use: No Preferred Language: Croatian Communication Ability: Effective Media Executive Required: No Beliefs That Will Affect Care: None marital status: Current Living Situation: Spouse Other Information That Helps Us Care for You: No Feels Safe at Home: Yes Safety Concerns: Feels Safe At This Time Assistive Devices: Walker Assistive Devices Comment: Ambulates independently/walker Review of Systems Review of Systems: The patient denies chest pain, palpitations, shortness of breath, dyspnea on exertion, cough, sore throat, fevers, chills, sweats, fatigue, nausea, vomiting, diarrhea , constipation, abdominal pain, pelvic pain, blood in urine or stool, dysuria, urinary frequency or urgency, lightheadedness, dizziness, headache, memory loss, loss of consciousness, rash, abnormal bruising or bleeding, imbalance, focal or generalized weakness, numbness or tingling in arms, generalized arthralgias or myalgias, back or neck pain, or night sweats. The review of systems is otherwise negative other than for that already noted above, and at least 10 systems have been reviewed. Physical Exam Physical Exam: The patient is awake, alert and oriented 3, well developed and well nourished, normocephalic and atraumatic, lying in bed and in no acute distress. HEENT--PERRL, EOMI, mucous membranes and oropharynx normal. Neck--supple. No JVD. No bruits. Thyroid normal, trachea midline, no adenopathy. Heart--normal S1 and S2. No murmurs, rubs or gallops. Lungs--clear bilaterally, no respiratory distress, no accessory muscle use. Abdomen--normal bowel sounds and soft. Nontender. Nondistended, no hernias or masses, no organomegaly. Extremities--no cyanosis or clubbing. Right lower extremity with 1+ pretibial pitting edema. There are good distal pulses b/l. Dermatologic--normal skin turgor, normal color, no abnormal lymph nodes, no rash. Neurologic--cranial nerves II through XII grossly intact. Rheumatologic--normal range of motion. Psychiatric--normal affect. Results & Data Results & Data ([facility]) Vital Signs (Past 12 Hours) Vital Signs Temp Pulse Pulse Resp BP BP Pulse Ox 01/02/20 22:49 74 18 127/65 95 01/02/20 21:51 77 18 132/79 96 01/02/20 20:55 75 18 143/85 H 95 01/02/20 17:44 98.4 F 118 H 18 117/67 100 Laboratory Results Laboratory Results WBC 7.04 K/uL (4.8-10.8) 01/02/20 19:17 RBC 2.83 M/uL (4.7-6.1) L 01/02/20 19:17 Hgb 8.3 g/dL (14.0-18.0) L 01/02/20 19:17 Hct 25.9 % (42-52) L 01/02/20 19:17 MCV 91.5 fL (80-100) 01/02/20 19:17 MCH 29.3 pg (25-34) 01/02/20 19:17 MCHC 32.0 g/dL (32-36) 01/02/20 19:17 RDW Std Deviation 56.8 fL (36.4-46.3) H 01/02/20 19:17 RDW Coeff of Mercy 17.1 % (11.5-14.5) H 01/02/20 19:17 Plt Count 355 K/uL (130-400) 01/02/20 19:17 MPV 8.4 fL (7.4-10.4) 01/02/20 19:17 Immature Gran % (Auto) 0.3 % 01/02/20 19:17 Neut % (Auto) 78.4 % 01/02/20 19:17 Lymph % (Auto) 12.9 % 01/02/20 19:17 [place] % (Auto) 5.1 % 01/02/20 19:17 Eos % (Auto) 3.0 % 01/02/20 19:17 Baso % (Auto) 0.3 % 01/02/20 19:17 Neut # (Auto) 5.52 K/uL (1.4-6.5) 01/02/20 19:17 Lymph # (Auto) 0.91 K/uL (1.2-3.4) L 01/02/20 19:17 [place] # (Auto) 0.36 K/uL (0.11-0.59) 01/02/20 19:17 Eos # (Auto) 0.21 K/uL (0-0.5) 01/02/20 19:17 Baso # (Auto) 0.02 K/uL (0-0.2) 01/02/20 19:17 Immature Gran # (Auto) 0.02 K/uL (0.00-0.02) 01/02/20 19:17 PT 11.7 Seconds (9.0-12.0) 01/02/20 19:17 INR 1.1 (0.9-1.1) 01/02/20 19:17 Sodium 136 mmol/L (136-145) 01/02/20 19:17 Potassium 4.3 mmol/L (3.5-5.1) 01/02/20 19:17 Chloride 107 mmol/L (98-107) 01/02/20 19:17 Carbon Dioxide 26 mmol/L (21-32) 01/02/20 19:17 Anion Gap 3.0 (3-11) 01/02/20 19:17 BUN 33 mg/dl (7-18) H 01/02/20 19:17 Creatinine 1.73 mg/dl (0.6-1.4) H 01/02/20 19:17 Est Cr Clr Drug Dosing 36.3 ml/min 01/02/20 19:17 Est GFR ( Amer) 41.7 01/02/20 19:17 Est GFR (Non-Af Amer) 36.0 01/02/20 19:17 BUN/Creatinine Ratio 19.0 (10-20) 01/02/20 19:17 Glucose 94 mg/dl (70-99) 01/02/20 19:17 Calcium 7.6 mg/dl (8.5-10.1) L 01/02/20 19:17 Magnesium 2.1 mg/dl (1.8-2.4) 01/02/20 19:17 Total Bilirubin 0.5 mg/dl (0.2-1) 01/02/20 19:17 AST 15 U/L (15-37) 01/02/20 19:17 ALT 29 U/L (12-78) 01/02/20 19:17 Alkaline Phosphatase 52 U/L (45-117) 01/02/20 19:17 Troponin I < 0.015 ng/ml (0-0.045) 01/02/20 19:17 Total Protein 5.9 gm/dl (6.4-8.2) L 01/02/20 19:17 Albumin 2.9 gm/dl (3.4-5.0) L 01/02/20 19:17 Globulin 3.0 gm/dl (2.5-4.0) 01/02/20 19:17 Albumin/Globulin Ratio 1.0 (0.9-2) 01/02/20 19:17 TSH 1.620 uIu/ml (0.300-4.500) 01/02/20 19:17 SARS-CoV-2 Ag (Rapid) Negative (Negative) 01/02/20 Unknown Diagnostic Findings [facility] [address], [phone] Ultrasound Report [facility] [place] Date: 01/02/20MR#: [id number]: [address] [facility] RDAcct ID:[id number]: Date: 1935City Zip: [place] [address]Nbz: [id number]: USSex: MRoom/Bed:Att Phy: Noman Iglseias M.D.Diagnosis: R LEG PAIN/SWELLINGPri Phy: Eliud Newsome M.D.Service Date: 01/02/20Fa Phy:Interpreting Phy: Greg Carrera MDAdmit Phy: Ordering Phy: Noman Iglesias M.D. cc: ~ US venous doppler LE RT CLINICAL HISTORY: Right leg pain and swelling. COMPARISON STUDY: No previous studies for comparison. FINDINGS: Grayscale color flow and spectral Doppler waveform analysis was performed. No thrombus was visualized within the common femoral vein. There is an area of nonocclusive thrombus within the proximal superficial femoral vein. One of 2 paired posterior tibial arteries demonstrates thrombus. One of 2 paired peroneal veins demonstrates thrombus. One of 2 paired anterior tibial veins demonstrates broken flow. IMPRESSION: 1. Right lower extremity DVT with nonocclusive thrombus identified within the proximal superficial femoral vein, as well as calf DVT involving the posterior tibial and peroneal veins. ACT 112: Negative or not required by law. Electronically signed by: Greg Carrera M.D. 01/02/2020 5:22 PM Dictated: 01/02/201719Transcribed: 01/02/201719 [facility] [address], [phone] XRay Report Patient: KEVIN ENRIQUE [facility] Date: 01/02/20MR#: [id number]: [address] RDAcct ID:[id number]: Date: 1935City Zip: [place] [phone]: 84Location: EDSex: MRoom/Bed:Att Phy:Diagnosis: dvt blood clotPri Phy: Eliud Newsome M.D.Service Date: 01/02/20[facility] Phy:Interpreting Phy: Greg Carrera MDAdmit Phy: Ordering Phy: Len Read MD cc: ~ XR chest 1V portable CLINICAL HISTORY: weakness COMPARISON STUDY: 11/26/2019 FINDINGS: The heart is mildly enlarged. There are subtle bilateral nodular parenchymal opacities. This could be secondary to a underlying inflammatory process although neoplasm cannot be excluded with certainty. Clinical and radiographic follow-up is recommended. There is no lobar consolidation. There is minor blunting of the left lateral costophrenic angle[ IMPRESSION: 1. Very subtle bilateral nodular parenchymal opacities, likely inflammatory. Clinical and radiographic follow-up is recommended. If these persist on follow-u p radiographs, CT scanning could also be obtained in follow-up to exclude other pathology. ACT 112: Negative or not required by law. Electronically signed by: Greg Carrera M.D. 01/02/2020 7:01 PM Dictated: 01/02/201858Transcribed: 01/02/201858 Code Status & VTE Plan Code Status Full code VTE Prophylaxis Plan VTE Prophylaxis will be ordered: Yes PG Care Time/CCT Total # of Minutes Spent Total Time Spent with Patient: Total time spent is greater than 50% in coordination of care (as documented) at patient's floor/unit and/or counseling patient: Coding Level of Care Code 95729 Initial Inpt Care Lvl 3 Diagnoses Acute deep vein thrombosis (DVT) of right lower extremity after procedure I97.89; I82.401 Gastric ulcer with hemorrhage K25.4 BPH (benign prostatic hyperplasia) N40.0 CAD (coronary artery disease) I25.10 Hypertension I10 Hyperlipidemia E78.5
[2020-01-03] MEDS ORDERED: DOCUSATE SODIUM 100 MG CAP PO PRN (00:59)
[2020-01-03] MEDS ORDERED: ACETAMINOPHEN 325 MG TAB PO PRN (00:59)
[2020-01-03] MEDS ORDERED: ONDANSETRON INJ 2 MG/ML 2 ML VIAL IV PRN (00:59)
[2020-01-03] MEDS ORDERED: SODIUM CHLORIDE 0.9% 1000ML 1,000 ML IV SCH (00:59)
[2020-01-03] MEDS: PANTOprazole 40 MG TAB PO SCH ×3 (01:47→20:08)
[2020-01-03] MEDS: LOSARTAN POTASSIUM 50 MG TAB PO SCH (07:50)
[2020-01-03] MEDS: MULTIVITAMIN TAB PO SCH (07:51)
[2020-01-03] MEDS: PANTOprazole 40 MG in SYRINGE 0 ML IV SCH (07:53)
[2020-01-03 07:59] LABS: Basophils # (auto) 0.02 K/uL (0-0.2); Basophils % (auto) 0.4 %; Eosinophils # (auto) 0.28 K/uL (0-0.5); Eosinophils % (auto) 5.5 %; Hematocrit (blood only) 24.9 % (42-52); Hemoglobin 8.2 g/dL (14.0-18.0); Immature Granulocytes # (auto) 0.02 K/uL (0.00-0.02); Immature Granulocytes % (auto) 0.4 %; Lymphocytes # (auto) 0.93 K/uL (1.2-3.4); Lymphocytes % (auto) 18.3 %; Mean Corpuscular Hgb Conc 32.9 g/dL (32-36); Mean Corpuscular Volume 91.2 fL (80-100); Mean Platelet Volume 8.3 fL (7.4-10.4); Monocytes # (auto) 0.37 K/uL (0.11-0.59); Monocytes % (auto) 7.3 %; Neutrophils # (auto) 3.46 K/uL (1.4-6.5); Neutrophils % (auto) 68.1 %; Platelet Count 351 K/uL (130-400); RDW Coefficient of Variation 17.3 % (11.5-14.5); RDW Standard Deviation 57.5 fL (36.4-46.3); Red Blood Count 2.73 M/uL (4.7-6.1); White Blood Count 5.08 K/uL (4.8-10.8)
[2020-01-03 08:10] LABS: INR 1.1 (0.9-1.1); Partial Thromboplastin Ratio 1.2; Partial Thromboplastin Time 33.6 Seconds (21.0-31.0); Prothrombin Time 11.9 Seconds (9.0-12.0)
--- NOTE | 2020-01-03 09:32 | Gastrointestinal Consultation ---
Date of Consultation January 03, 2020 Supervising Physician Co-Signing Physician Notes 84 yo male with a history of cadz on aspirin, bph, htn, hl, recent tka on 12/18/19 at an outside hospital, then with post operative gi bleed - egd at [facility] 2 weeks ago showed gastric ulcer- cauterized per patient report, thereafter with post-operative anemia. No further evidence of ongoing GI bleeding. Has chronic baseline mild stephenie. Admitted now with concerns for a dvt. Recent gastric ulcer- no clinical current evidence of ongoing gi bleeding. No hematemesis, melena, no abdominal pain, nausea, vomiting. Would continue PPI BID- change to IV BID if ongoing evidence of bleeding. Would continue this for at least 8 weeks despite mild stephenie. DVT - consider heparin gtt while in house, if no active bleeding on heparin gtt in 24 hours, consider starting anticoagulation for dvt. Will continue to follow. Please obtain osh records from [facility] and [facility]. History of Present Illness Reason for Consultation: History of gastric ulcer Requesting Physician: Dr. Mortensen Attending Physician: Roger France MD History of Present Illness 84 yo male on longstanding aspiring. Hisoty of BPH, htn, hyperlipidemia, underwent right total knee replacement on 12/18/19 at an outside hospital. Denied taking nsaid's today pre or post operatively. Post operatively, vomited blood - transferred to [facility], reportedly underwent an egd with findings of a gastric ulcer that was bleeding- per patient today it was cauterized, does not think it was clipped. Was given 2 units of prbc prior to the egd. He has had persistent anemia since then. No further episodes of hematemesis since that initial event post operatively. Denies melena, belly pain, nausea, vomiting, diarrhea. He then was discharged home, noted to still be anemic (no actual values are available as no records are present for review). He remained without symptoms of hematemesis, melena, is not certain if he was taking a ppi post egd. He then was admitted to [facility] for anemia and given 2 units of prbc transfusion. He then was transferred to [facility] due bed issues at [facility] and gi evaluation. Gi saw him at [facility] and decided for no repeat scope (this was ap proximately 3 days ago) and he was dc'd on 12/31/19. He was now admitted due to concerns for a dvt and needing anticoagulation. GI consutled given recent gastric ulcer history. This morning- he is denying any melena, hematochezia, abdominal pain, nausea, vomiting, diarrhea. Overall feeling fine- he is not wanting a repeat egd nor does he need one. Allergies Allergy/AdvReac Type Severity Reaction Status Date / Time lisinopril AdvReac Mild Cough Verified 12/18/19 09:34 Home Medications Medication Instructions Recorded Confirmed Type losartan 50 mg PO QAM 11/21/19 01/02/20 History simvastatin 20 mg PO HS 11/21/19 01/02/20 History terazosin 5 mg PO HS 11/21/19 01/02/20 History acetaminophen 1,000 mg PO Q8 #30 tab 12/19/19 01/02/20 Rx multivitamin [Daily-Sebastian] 1 tab PO QAM #30 tab 12/19/19 01/02/20 Rx aspirin 81 mg PO Q2D 01/02/20 01/02/20 History docusate sodium 100 mg PO BID PRN 01/02/20 01/02/20 History pantoprazole 40 mg PO BID 01/02/20 01/02/20 History Patient History Medical History (Updated 01/03/20 @ 04:10 by Martir Mortensen MD) Arthritis BPH (benign prostatic hyperplasia) CAD (coronary artery disease) 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 Gastric ulcer with hemorrhage GERD (gastroesophageal reflux disease) Hyperlipidemia Hypertension Mitral valve prolapse mitral valve prolapse with moderate MR per 11/2018 echo Surgical History History of cardiac cath 2015 History of cataract surgery Right History of colonoscopy History of open reduction and internal fixation (ORIF) procedure Right arm Family History Sister Family hx of colon cancer Social History Smoking Status: Former smoker Smoking End Date: 55 years ago; Second Hand Exposure: No; Do You Dip or Chew Tobacco: No; Tobacco Cessation Education Requested by Patient: No Hx Alcohol Use: No Hx Substance Use: No Preferred Language: Albanian Communication Ability: Effective Interlibrary Loan Services Librarian Required: No Beliefs That Will Affect Care: None marital status: Current Living Situation: Spouse Other Information That Helps Us Care for You: No Feels Safe at Home: Yes Safety Concerns: Feels Safe At This Time Assistive Devices: Walker Assistive Devices Comment: Ambulates independently/walker Review of Systems Review of Systems: All systems reviewed & are unremarkable except as noted in HPI & below Physical Exam Physical Exam: Well nourished tall male in nad Eyes: PERRL, conjunctivae normal, anicteric sclerae Gastrointestinal (Abdomen): normal bowel sounds, soft, nontender, no hepatosplenomegaly Skin: no rashes, warm and dry Neurologic: patellar DTR's 2+ bilat, sensation intact and PERRL, EOMI, accommodation nl, no face palsy, no dysarthria Psychiatric: A+Ox3, euthymic affect Results & Data ([facility]) Vital Signs (Past 12 Hours) Vital Signs Temp Pulse Pulse Resp BP BP Pulse Ox 01/03/20 07:13 37.1 C 64 18 111/57 L 94 01/03/20 04:00 37.0 C 69 18 113/67 96 01/03/20 00:59 36.9 C 86 16 143/71 H 95 01/03/20 00:42 77 01/03/20 00:17 66 18 131/69 95 01/02/20 22:49 74 18 127/65 95 01/02/20 21:51 77 18 132/79 96 Pulse Ox 01/03/20 07:13 01/03/20 04:00 01/03/20 00:59 95 01/03/20 00:42 01/03/20 00:17 01/02/20 22:49 01/02/20 21:51 Hgb 8.3 to 8.2 Bun 33/1.73 All other labs reviewed Imaging: RLE DVT
[2020-01-03 09:43] LABS: Albumin Level 2.6 gm/dl (3.4-5.0); BUN Creatinine Ratio 19.8 (10-20); Calcium 7.7 mg/dl (8.5-10.1); Creatinine Clr Calc Pharmacy 38.2 ml/min; Est GFR (African American) 51.2; Est GFR (Non-African American) 44.2; Magnesium 2.3 mg/dl (1.8-2.4); Potassium 4.2 mmol/L (3.5-5.1)
[2020-01-03 09:46] LABS: Albumin Globulin Ratio 0.9 (0.9-2); Bilirubin,Total 0.7 mg/dl (0.2-1); Globulin 2.9 gm/dl (2.5-4.0); Total Protein 5.5 gm/dl (6.4-8.2)
[2020-01-03] MEDS ORDERED: Heparin IV Standard *NO* Bolus IV SCH (10:49)
[2020-01-03] MEDS: HEPARIN SODIUM/DEXTROSE 25,000 UNITS/500 ML BAG IV SCH (11:51)
--- NOTE | 2020-01-03 12:24 | Hospitalist Progress Note ---
Date of Service January 03, 2020 Assessment & Plan (1) Acute deep vein thrombosis (DVT) of right lower extremity after procedure: Stephane Carr is an 84-year-old male with a past medical history including hypertension, GERD, hyperlipidemia, BPH with LUTS, and status post right total knee arthroplasty by Dr. Iglesias on 12/18/2019. After surgery had bloody emesis and requires 4 units PRBC during two different admissions. Discharged for the last time on 12/30. Followed up with surgeon on 01/01, who ordered RLE venous Doppler which was positive as below. Acute DVT of right lower extremity after procedure - Venous Doppler: nonocclusive thrombus of proximal superficial femoral vein & calf DVT of posterior tibial and peroneal veins - Concern about anticoagulation with recent gastric ulcer requiring 4 units PRBCs transfusion. - Started heparin gtt per gastro recs below - Plan to transition to Lovenox after 24 hours if no evidence of gastric rebleeding - Will have to treat with anticoagulation for 3 months - No current concerns for PE--CTA of chest was not done as patient had borderline GFR and no s/s of PE - Patient has already consented for transfusion if necessary - Trend Hgb Gastric ulcer with hemorrhage - Continue pantoprazole 40 mg PO twice daily - Hgb 8.2 today--patient reports this is stable since last transfusion - Gastroenterology recs: - Recent gastric ulcer- no clinical current evidence of ongoing gi bleeding. No hematemesis, melena, no abdominal pain, nausea, vomiting. - Would continue PPI BID- change to IV BID if ongoing evidence of bleeding. Would continue this for at least 8 weeks despite mild stephenie. - DVT - consider heparin gtt while in house, if no active bleeding on heparin gtt in 24 hours, consider starting anticoagulation for dvt. - Patient already consented for transfusion if it were necessary BPH - Continue Terazosin 5 mg PO at bedtime CAD - Hold losartan and aspirin for now Hypertension - Hold meds as above - BP stable during admission Hyperlipidemia - Continue simvastatin 20 mg at bedtime FEN/GI: Heart Healthy DVT ppx: Heparin gtt Dispo: Med/surg tele Code: Full Code (2) Gastric ulcer with hemorrhage: (3) BPH (benign prostatic hyperplasia): (4) CAD (coronary artery disease): (5) Hypertension: (6) Hyperlipidemia: Admission and Anticipated Discharge Date Admission Date: January 02, 2020 Supervising Physician Co-Signing Physician Notes Resident Physician Supervision Note: I was present with Dr. Jefe Randall during the history and exam. I discussed the case with the resident and agree with the findings and plan as documented in the note. Any exceptions or clarifications are listed here: None Patient had no additional abdominal pain or melena. He does have some leg discomfort We discussed therapy therapeutically coagulating and easing and agreeable with will begin heparin drip today if stable after 24 hours consider transitioning to Lovenox could consider going to the once a day Lovenox with monitoring factor Xa levels make it easier on him to anticoagulant himself I did receive a call from Dr. Moncho Cheema the patient's orthopod personally spoke to him and told him the plan he is agreeable with the plan. Remarkable he has nonlabored respirations Documented By: Roger France MD Subjective No acute events overnight. Patient doing well this morning with no complaints. Denies CP, palpitations, SOB, fever, chills, sweats, n/v, abd pain. I explained treatment options to him given the more complicated picture with anticoagulation in light of his recent gastric bleeding. I counseled him on different possibilities including IVC filter as well as the anticoagulation. He agrees to try anticoagulation as the IVC filter would likely have complications further down the line. All questions answered to the best of my abilities. Additionally he was consented for blood transfusion preemptively in case he did rebleed. All risks and benefits explained with senior resident and attending physician in the room. Review of Systems Review of Systems: All systems reviewed & are unremarkable except as noted in Subjective Physical Exam Constitutional: WD/WN, vitals as above no acute distress Respiratory: normal respiratory effort, lungs clear to auscultation Cardiovascular: RRR, no murmur, no edema Heart Sounds: normal S1 and normal S2 Gastrointestinal (Abdomen): normal bowel sounds, soft, nontender, no hepatosplenomegaly Musculoskeletal: no cyanosis or clubbing, extremities motor strength 5/5 Skin: no rashes, warm and dry Psychiatric: A+Ox3, euthymic affect Results & Data Results & Data ([facility]) Vital Signs (Past 12 Hours) Vital Signs Temp Pulse Pulse Resp BP BP Pulse Ox 01/03/20 11:16 61 01/03/20 10:51 37.0 C 50 L 20 120/69 96 01/03/20 07:13 37.1 C 64 18 111/57 L 94 01/03/20 04:00 37.0 C 69 18 113/67 96 01/03/20 00:59 36.9 C 86 16 143/71 H 95 01/03/20 00:42 77 Pulse Ox 01/03/20 11:16 01/03/20 10:51 01/03/20 07:13 01/03/20 04:00 01/03/20 00:59 95 01/03/20 00:42 Resident Activity Tracking Resident Involvement: Resident Care Provided Care Provided: Adult Hospital Medicine
--- NOTE | 2020-01-03 15:57 | Billing Data ---
Date of Service January 03, 2020 Coding Level of Care Code 55277 Subseq Hosp Care Lvl 3
[2020-01-03 19:38] LABS: Partial Thromboplastin Ratio 1.6; Partial Thromboplastin Time 43.3 Seconds (21.0-31.0)
[2020-01-03] MEDS ORDERED: SIMVASTATIN 20 MG TAB PO SCH (21:00)
[2020-01-04 02:21] LABS: Partial Thromboplastin Ratio 2.5
[2020-01-04 02:35] LABS: Partial Thromboplastin Time 68.5 Seconds (21.0-31.0)
[2020-01-04 05:48] LABS: Basophils # (auto) 0.02 K/uL (0-0.2); Basophils % (auto) 0.3 %; Eosinophils # (auto) 0.28 K/uL (0-0.5); Eosinophils % (auto) 4.8 %; Hematocrit (blood only) 26.8 % (42-52); Hemoglobin 8.6 g/dL (14.0-18.0); Immature Granulocytes # (auto) 0.02 K/uL (0.00-0.02); Immature Granulocytes % (auto) 0.3 %; Lymphocytes # (auto) 1.05 K/uL (1.2-3.4); Lymphocytes % (auto) 17.9 %; Mean Corpuscular Hemoglobin 29.2 pg (25-34); Mean Corpuscular Hgb Conc 32.1 g/dL (32-36); Mean Corpuscular Volume 90.8 fL (80-100); Mean Platelet Volume 8.1 fL (7.4-10.4); Monocytes # (auto) 0.41 K/uL (0.11-0.59); Neutrophils % (auto) 69.7 %; Platelet Count 391 K/uL (130-400); RDW Coefficient of Variation 17.1 % (11.5-14.5); Red Blood Count 2.95 M/uL (4.7-6.1); White Blood Count 5.88 K/uL (4.8-10.8)
[2020-01-04 06:10] LABS: INR 1.1 (0.9-1.1); Partial Thromboplastin Ratio 2.4; Prothrombin Time 11.6 Seconds (9.0-12.0)
[2020-01-04 06:16] LABS: Partial Thromboplastin Time 66.8 Seconds (21.0-31.0)
[2020-01-04 06:26] LABS: Albumin Level 2.8 gm/dl (3.4-5.0); BUN Creatinine Ratio 17.5 (10-20); Calcium 7.9 mg/dl (8.5-10.1); Creatinine Clr Calc Pharmacy 36.1 ml/min; Est GFR (African American) 47.6; Est GFR (Non-African American) 41.1; Magnesium 2.4 mg/dl (1.8-2.4); Potassium 4.3 mmol/L (3.5-5.1)
[2020-01-04 06:28] LABS: Albumin Globulin Ratio 0.9 (0.9-2); Bilirubin,Total 0.5 mg/dl (0.2-1); Globulin 3.1 gm/dl (2.5-4.0); Total Protein 5.9 gm/dl (6.4-8.2)
[2020-01-04] MEDS: HEPARIN SODIUM/DEXTROSE 25,000 UNITS/500 ML BAG IV SCH ×2 (06:34→11:03)
[2020-01-04 09:17] LABS: Partial Thromboplastin Ratio 2.5
[2020-01-04 09:20] LABS: Partial Thromboplastin Time 70.2 Seconds (21.0-31.0)
[2020-01-04] MEDS: PANTOprazole 40 MG TAB PO SCH (09:42)
[2020-01-04] MEDS: MULTIVITAMIN TAB PO SCH (09:42)
[2020-01-04] MEDS: LOSARTAN POTASSIUM 50 MG TAB PO SCH (09:42)
--- NOTE | 2020-01-04 10:32 | Gastroenterology Progress Note ---
Date of Service January 04, 2020 Assessment & Plan (1) Gastric ulcer with hemorrhage: (2) DVT (deep venous thrombosis): Pt is a 84 y/o male w currently admitted w R LE DVT. He had hx of GI bleed secondary to gastric ulcer [facility] He has been on Heparin gtt, no recurrent sign of GI bleeding. No contraindication for anticoagulation use from our standpoint. GI to sign off; pls recall prn Admission and Anticipated Discharge Date Admission Date: January 02, 2020 Supervising Physician Co-Signing Physician Notes I have seen and examined the patient with SALLY Jacobson whose note reflects our findings and plan. No s/s of GI bleeding. On anticoagulation. PPI BID. LE pain but no abd pain. No nausea or vomiting. Abd is benign on exam. Please call with questions. Subjective Pt had BM this AM and reports no blood or dark tarry appearance to it. He denies any abd pain, n/v. Review of Systems Review of Systems: All systems reviewed & are unremarkable except as noted in HPI & below Physical Exam Constitutional: WD/WN, vitals as above well groomed, cooperative and comf ortable Eyes: PERRL, conjunctivae normal, anicteric sclerae ENMT: external ear and nose normal, oropharynx normal Respiratory: normal respiratory effort, lungs clear to auscultation Cardiovascular: RRR, no murmur, no edema Gastrointestinal (Abdomen): normal bowel sounds, soft, nontender, no hepatosplenomegaly Skin: no rashes, warm and dry Psychiatric: A+Ox3, euthymic affect Lymphatic: no lymphedema Results & Data ([facility]) Vital Signs (Past 12 Hours) Vital Signs Temp Pulse Resp BP Pulse Ox 01/04/20 07:06 37.0 C 68 18 122/68 96 01/04/20 03:44 37 C 66 20 120/68 95 01/03/20 23:30 37.3 C 66 20 131/71 97 (1) DVT (deep venous thrombosis) Affected thrombotic vein of extremity: femoral Chronicity: acute DVT location: lower extremity Laterality: right Qualified Code(s): I82.411 - Acute embolism and thrombosis of right femoral vein
--- NOTE | 2020-01-04 13:06 | Discharge Summary ---
Date of Service January 04, 2020 Admission HPI Per Admitting Provider The patient is an 84-year-old male with a past medical history including hypertension, GERD, hyperlipidemia, BPH with LUTS, and status post right total knee arthroplasty by Dr. Iglesias on 12/18/2019. The patient reports that shortly after surgery, he had episodes of vomiting blood. He was sent to [facility], where he was found to have a bleeding gastric ulcer that was treated by gastroenterology there, and he received 2 units PRBCs there as well. After discharge from [facility], he had follow-up laboratories that again revealed anemia, and received 2 units PRBCs at [facility] in [place]. From [facility] he was transferred to [facility] in [place] due to no bed availability at [facility],, and was from there discharged on 12/30. He had routine follow-up with Dr. Iglesias earlier in the day today, where Dr. Iglesias ordered the right lower extremity venous Doppler, which was positive for a nonocclusive thrombus in the proximal superficial femoral vein, and a calf DVT in the posterior tibial and peroneal veins. The patient does have a chest x-ray which shows question of bilateral nodular opacities, and has no chest pain or shortness of breath symptoms, but we are unable to do a CT angiography PE protocol due to borderline GFR of 36. Admission Exam Per Admitting Provider The patient is awake, alert and oriented 3, well developed and well nourished, normocephalic and atraumatic, lying in bed and in no acute distress. HEENT--PERRL, EOMI, mucous membranes and oropharynx normal. Neck--supple. No JVD. No bruits. Thyroid normal, trachea midline, no adenopathy. Heart--normal S1 and S2. No murmurs, rubs or gallops. Lungs--clear bilaterally, no respiratory distress, no accessory muscle use. Abdomen--normal bowel sounds and soft. Nontender. Nondistended, no hernias or masses, no organomegaly. Extremities--no cyanosis or clubbing. Right lower extremity with 1+ pretibial pitting edema. There are good distal pulses b/l. Dermatologic--normal skin turgor, normal color, no abnormal lymph nodes, no rash. Neurologic--cranial nerves II through XII grossly intact. Rheumatologic--normal range of motion. Psychiatric--normal affect. Principal Diagnosis DVT Discharge Exam Constitutional WD/WN, vitals as above no acute distress Respiratory normal respiratory effort, lungs clear to auscultation Cardiovascular RRR, no murmur, no edema Heart Sounds: normal S1 and normal S2 Gastrointestinal (Abdomen) normal bowel sounds, soft, nontender, no hepatosplenomegaly Musculoskeletal no cyanosis or clubbing, extremities motor strength 5/5 Skin no rashes, warm and dry Psychiatric A+Ox3, euthymic affect Discharge Data Allergies Allergy/AdvReac Type Severity Reaction Status Date / Time lisinopril AdvReac Mild Cough Verified 12/18/19 09:34 Consultations 01/02/20 21:01 ED Decision to Admit Stat 01/03/20 00:59 Consult Case Management - Discharge Planning Routine Consult Gastroenterology Routine Hospital Course (1) Acute deep vein thrombosis (DVT) of right lower extremity after procedure: Stephane Carr is an 84-year-old male with a past medical history including hypertension, GERD, hyperlipidemia, BPH with LUTS, and status post right total knee arthroplasty by Dr. Iglesias on 12/18/2019. After surgery had bloody emesis and requires 4 units PRBC during two different admissions. Discharged for the last time on 12/30. Followed up with surgeon on 01/01, who ordered RLE venous Doppler which was positive as below. Acute DVT of right lower extremity after procedure - Venous Doppler: nonocclusive thrombus of proximal superficial femoral vein & calf DVT of posterior tibial and peroneal veins - Concern about anticoagulation with recent gastric ulcer requiring 4 units PRBCs transfusion. - Patient received heparin gtt fr 24hrs per gastro recs - No signs or symptoms of rebleeding after 24 hours--transitioned to Lovenox 80mg SQ BID - Will have to continue treatment for 3 months--may consider switching to once- daily dosing after the first month if no signs of gastric bleeding - No concerns for PE during admission--CTA of chest was not done as patient had borderline GFR and no s/s of PE Gastric ulcer with hemorrhage - Continue pantoprazole 40 mg PO twice daily - Hgb 8.6 today--stable throughout admission, and per patient has been around 8s since last transfusion - Gastroenterology recs before d/c: - No recurrent sign of GI bleeding. No contraindication for anticoagulation use from our standpoint. GI to sign off BPH - Continue Terazosin 5 mg PO at bedtime CAD - Held losartan and aspirin during admission Hypertension - Held meds as above - BP stable during admission Hyperlipidemia - Continue simvastatin 20 mg at bedtime FEN/GI: Heart Healthy DVT ppx: Lovenox 80mg SQ BID Dispo: Home--self care Code: Full Code (2) Gastric ulcer with hemorrhage: (3) BPH (benign prostatic hyperplasia): (4) CAD (coronary artery disease): (5) Hypertension: (6) Hyperlipidemia: Total Time Total Time Spent Total Time Spent (In Minutes): <30 Discharge Plan Discharge Items Patient Disposition: Home - Self-Care Reason For Visit: RLE DVT, GASTRIC ULCER HX WITH BLEED Discharge Diagnosis: RLE DVT Activity: Per Instructions section Non-emergency contact: Primary Care Provider Call non-emergency contact if: your symptoms worsen Follow-up/Referrals: Eliud Newsome [Primary Care Provider] - Diet: Heart Healthy Addtl Attending Provider Instructions: You were admitted to [facility] because you were found to have a blood clot in your right leg during your follow-up appointment with your orthopedic surgeon. While hospitalized you were started on aheparin drip and watched for 24 hours due to your recent history of gastric bleeding. Your hemoglobin was stable throughout your admission and had no signs of repeated bleeding. As such, you will be discharged with treatment for the blood clot in your right leg. The treatment consists of blood thinners that you will inject into your abdomen as you have already done pre-surgically. As discussed, this treatment will continue for 3 months to decrease the risk of the blood clot getting lodged in your lungs. Please follow up with your primary care provider to discuss management of this medication and continued care with regards to your clot as well as the gastric bleeding. It is important that you stay vigilant for signs of gastric bleeding, like you had before, such as very dark brown/black stool, bloody vomiting, severe abdominal pain, etc. If you have any of the symptms mentioned above or develop sudden shortness of breath, chest pain, or concerning symptoms during your treatment please seek emergency care. Pending Studies at Discharge: No Stand-Alone Forms: [email or web address], Smoking Cessation Medications and DC Order Prescriptions: New enoxaparin [Lovenox] 80 mg/0.8 mL syringe 80 mg subcut Q12H 30 Days Qty: 48 RF: 0 Continued losartan 50 mg Tablet 50 mg PO QAM RF: 0 terazosin 5 mg Capsule 5 mg PO HS RF: 0 simvastatin 20 mg Tablet 20 mg PO HS RF: 0 acetaminophen 500 mg Tablet 1,000 mg PO Q8 Qty: 30 RF: 0 multivitamin [Daily-Sebastian] Tablet 1 tab PO QAM Qty: 30 RF: 0 pantoprazole 40 mg tablet,delayed release (DR/EC) 40 mg PO BID RF: 0 docusate sodium 100 mg capsule 100 mg PO BID PRN (Reason: Constipation) RF: 0 aspirin 81 mg Tablet,Delayed Release (Dr/Ec) 81 mg PO Q2D RF: 0 Discharge Orders: Discharge Order (Routine); Ordered 01/04/20 Ordered By: Jefe Fair/Other Patient Handouts: DVT Dc, ED PEPTIC ULCER vs GASTRITIS Admission Data Admit Date/Time: 01/02/20 23:38 Attending Provider: Levon Robertson Admit Provider: Martir Mortensen Primary Care Provider: Eliud Newsome Other Providers: Martir Mortensen ; Nitin Butler ; [facility] Other Interventions: Discharge Summary Assessment (RN) Last Done: 01/04/20 15:14 Supervising Physician Co-Signing Physician Notes I personally examined the patient and verified all purdy points of history and exam, discussed case, and agree with decision making with Dr Randall feeling better really wants to go home. no new complaints discussed plan and careful balance between needing anticoagulated for clots and following closely for any rebleeding w ulcers; outlined "red flag" symptoms to watch for vitals noted nad heent nc at mmm breathing unlabored no accessory muscles good effort skin no rashes no pallor or icterus neuro no focal deficits DVT - lovenox for short off-time and at least partial reversibility with protamine if needed. 1mg/kg sq q12 dosing so as not to have large front-end bolus of dosing. appearing very stable as it relates to DVT GI bleeding - stable this admission - safe for home on bid protonix for a while (duration depending on how he does with anticoagulation and ulcer and how long he needs anticoagulation overall) Resident Activity Tracking Resident Involvement: Resident Care Provided Care Provided: Adult Hospital Medicine
--- NOTE | 2020-01-04 15:33 | Billing Data ---
Date of Service January 04, 2020 Coding Level of Care Code D/C Day Management <30 mins
[2020-01-04 15:52] LABS: Partial Thromboplastin Time 56.9 Seconds (21.0-31.0)
--- NOTE | 2020-01-04 20:59 | Electrocardiogram Report ---
Test Reason : Blood Pressure : / mmHG Vent. Rate : 072 BPM Atrial Rate : 072 BPM P-R Int : 154 ms QRS Dur : 076 ms QT Int : 392 ms P-R-T Axes : 036 021 043 degrees QTc Int : 429 ms Normal sinus rhythm Normal ECG When compared with ECG of 26-NOV-2019 10:55, No significant change was found Confirmed by Drake Wilde ([id number]) on 01/04/2020 8:58:29 PM Referred By: REFERRED SELF Confirmed By:Drake Wilde
== END 2020-01-04 18:23 | disposition home or self-care (01) | DRG 301 ==
LOC: ED 17:42 → SUATTDRO 23:38 → 2N 23:38